=== PATIENT | female | born 1930 | race Caucasian/White ===

== ENCOUNTER → 2016-07-16 | Outpatient (CLI) | payer MEDICARE ==
[~2016-07-16] MED LIST: ANTI-DIARRHEAL2 M1 PO; ARIMIDEX1 MG PO; ASPIRIN PO; ASPIRINEC PO; BENADRYL25 MG PO; BENTYL10 MG PO; BISOPROLOL-HCTZ1 TA2 PO; BONIVA150 MG PO; CALCIUM 500 + D1 TAB PO; CELEXA PO; CIPRO XR 500 M500 MG PO; COZAAR25 MG PO; HYDROCODON-ACE1 EAC7 PO; IMODIUM2 MG PO; LISINOPRIL1 GM PO; LOSARTAN POTASS25 MG PO; MELATONIN10 M1 PO; PROLIA60 MG/1 ML SQ; TRIAMCINOLONE A15 G8 TP; VITAMIN D32000 UNI1 PO; ZOLOFT PO; ZYRTEC1 MG/1 ML PO; [UNRECOGNIZED DRUG - OTHER] PO
== END | disposition home or self-care (01) ==
LOC: CSSDAY 10:49
DX: M81.0 Age-related osteoporosis without current pathological fracture (principal); Z79.899 Other long term (current) drug therapy
CPT/HCPCS: 36415; 82310; 96372; J0897